=== PATIENT | female | born 1995 | race Two or more races ===

== ENCOUNTER 2018-08-25 19:55 | Emergency (ER) | payer OTHER ==
[~2018-08-25] VITALS: Ht 162.6 cm; Wt 59.0 kg
== END 2018-08-26 06:41 | disposition home or self-care (01) ==
LOC: ER 19:55
DX: K52.9 Noninfective gastroenteritis and colitis, unspecified (principal)

== ENCOUNTER 2021-06-06 19:03 | Emergency (ER) | payer OTHER ==
[~2021-06-06] VITALS: Ht 162.6 cm; Wt 68.0 kg
== END 2021-06-06 22:12 | disposition home or self-care (01) ==
LOC: ER 19:03
DX: S60.031A Contusion of right middle finger without damage to nail, initial encounter (principal); W22.8XXA Striking against or struck by other objects, initial encounter; Y93.9 Activity, unspecified; Y92.69 Other specified industrial and construction area as the place of occurrence of the external cause